=== PATIENT | female | born 1940 | race Caucasian/White ===

== ENCOUNTER 2017-07-26 14:43 | Emergency (ER) | payer OTHER ==
[2017-07-26 15:15] VITALS: BP 161/77; PULSE 69; RESP 16; TEMP 97.7; O2SAT 95
--- NOTE | 2017-07-26 15:47 | EDPHY ---
H & P Stated Complaint: RIGHT WRIST PAIN. DX-FX AT URGENT CARE HPI/ROS: HPI CHIEF COMPLAINT: Right wrist pain. HISTORY OF PRESENT ILLNESS: Patient very pleasant 76-year-old female, significant past medical history for hypertension and thyroid disease, presents emergency room right wrist pain. Patient fell on outstretched right hand yesterday after she slipped on some ice. She thought it was sprain. She had x- rays done at imaging center today and was diagnosed with a fracture. She is not sure exactly where the fractures. She presents emergency room with right wrist pain swelling and a x-ray disc. She denies any other areas of injury. Past Medical History: Hypertension, thyroid disease Past Surgical History: No recent surgical history. Social History: Lives locally, denies drugs alcohol tobacco. Family History: Noncontributory. ROS REVIEW OF SYSTEMS: A comprehensive 10 point review of systems is otherwise negative aside from elements mentioned in the history of present illness. Exam Constitutional triage nursing summary reviewed, vital signs reviewed, awake/ alert. Eyes normal conjunctivae and sclera, EOMI, PERRLA. HENT normal inspection, atraumatic, moist mucus membranes, no epistaxis, neck supple/ no meningismus, no raccoon eyes. Respiratory clear to auscultation bilaterally, normal breath sounds, no respiratory distress, no wheezing. Cardiovascular rate normal, regular rhythm, no murmur, no edema, distal pulses normal. Gastrointestinal soft, non-tender, no rebound, no guarding, normal bowel sounds, no distension, no pulsatile mass. Genitourinary no CVA tenderness. Musculoskeletal right upper extremity: Tender palpation over the distal right wrist, distal radius, is noted to be swollen, ecchymosis present, she is neurovascularly intact, compartments are soft, no midline vertebral tenderness, full range of motion, no calf swelling, no tenderness of extremities, no meningismus, good pulses, neurovascularly intact. Skin pink, warm, & dry, no rash, skin atraumatic. Neurologic awake, alert and oriented x 3, AAOx3, moves all 4 extremities equally, motor intact, sensory intact, CN II-XII intact, normal cerebellar, normal vision, normal speech. Psychiatric normal mood/affect. Heme/Lymph/Immune no lymphadenopathy. Differential Diagnosis: Includes but is not limited to in a particular order food injury, distal radius head fracture, distal ulnar fracture, wrist fracture , sprain, soft tissue swelling Medical Decision Making: Plan for this patient will load the disc to visualize the fracture, patient need to be splinted and close follow up with Orthopedics. Re-evaluation: Patient's outside x-ray reviewed by myself that shows a distal radius fracture. Patient be splinted in a sugar-tong splint, additionally will need orthopedic follow-up. Recommend ice, elevation, anti-inflammatory pain medicine for acute pain control. Source: Patient - Personal History Current Tetanus/Diphtheria Vaccine: Yes Current Tetanus Diphtheria and Acellular Pertussis (TDAP): Yes Tetanus Vaccine Date: < 10 YRS - Medical/Surgical History Hx Asthma: No Hx Chronic Respiratory Disease: No Hx Diabetes: No Hx Cardiac Disease: No Hx Renal Disease: No Hx Cirrhosis: No Hx Alcoholism: No Hx HIV/AIDS: No Hx Splenectomy or Spleen Trauma: No Other PMH: HYPOTHYROIDISM - Social History Smoking Status: Never smoked Constitutional: Initial Vital Signs Temperature (C) 36.5 C 07/26/17 15:11 Heart Rate 69 07/26/17 15:11 Respiratory Rate 16 07/26/17 15:11 Blood Pressure 161/77 H 07/26/17 15:11 O2 Sat (%) 95 07/26/17 15:11 O2 Delivery Mode Room Air Allergies/Adverse Reactions: Sulfa (Sulfonamide Antibiotics) Allergy (Severe, Verified 12/01/10 16:14) JOINT ACHES/RED BUMPS ENVIRNONMENTAL Allergy (Mild, Uncoded 06/18/13 11:46) RUNNY NOSE FRAGRANCES Allergy (Mild, Uncoded 06/18/13 11:46) TINGLING COUGH Home Medications: Medication Instructions Recorded Ascorbic Acid [Vitamin C] 500 mg PO BID 06/14/13 Aspirin [Aspirin 81mg (OTC)] 81 mg PO DAILY 06/14/13 Benzocaine/Resorcin/Aloe/E,A,D 28 gm TP .TWICE A WEEK 06/14/13 [Vagicaine Cream] Calcium Carb/Vit D3/Minerals 1 each PO BID 06/14/13 [Calcium 1,200 mg Tablet Chew] Carvedilol [Coreg] 12.5 mg PO BID 06/14/13 Cholecalciferol Vit D3 [Vitamin D3 1,000 units PO DAILY 06/14/13 1000 units (OTC)] Fish Oil/Dha/Epa [Fish Oil 1,200 1 each PO BID 06/14/13 mg Fish Oil] Glucosamine HCl/MSM [Sm 1 each PO BID 06/14/13 Glucosamine & MSM Tablet] Levothyroxine [Synthroid 112 mcg 112 mcg PO DAILY06 06/14/13 (RX)] Montelukast Sodium [Singulair 10 10 mg PO DAILY@1800 06/14/13 mg (RX)] Multivitamins [Tab-A-Will] 1 each PO DAILY 06/14/13 Ubidecarenone [Coq-10] 200 mg PO DAILY 06/14/13 Vit A/Vit C/Vit E/Zinc/Copper 1 each PO BID 06/14/13 [Preservision Areds Softgel] Vitamin E [Vitamin E 400 units 400 unit PO DAILY@19 06/14/13 (OTC)] metroNIDAZOLE 0.75 % [Metrogel 45 jonathan TP BID PRN 06/14/13 0.75% Topical Gel (RX)] Departure - Departure Disposition: Home, Routine, Self-Care Clinical Impression: Wrist fracture, right Qualifiers: Encounter type: initial encounter Fracture type: closed Qualified Code(s): S62.101A - Fracture of unspecified carpal bone, right wrist, initial encounter for closed fracture Condition: Good Instructions: Wrist Fracture in Adults (ED) Additional Instructions: 1. Please follow up with Orthopedics next week. 2. Call them for follow-up appointment. 3. Stay in her splint for comfort and pain control. 4. Take Motrin or Tylenol for pain control. Referrals: Kaiden Arguello MD [Primary Care Provider] - As per Instructions De Pfeiffer MD [Medical Doctor] - As per Instructions
== END 2017-07-26 16:58 | disposition home or self-care (01) ==
DX: S62.101A Fracture of unspecified carpal bone, right wrist, initial encounter for closed fracture (principal); I10 Essential (primary) hypertension; Z79.82 Long term (current) use of aspirin; W00.0XXA Fall on same level due to ice and snow, initial encounter; Y99.8 Other external cause status; Y93.89 Activity, other specified
CPT/HCPCS: 99282; A4565

== ENCOUNTER → 2017-08-22 | Outpatient (CLI) | payer OTHER | LOC: FIMAGING 11:34 | PROVIDERS: ATTEND Internal Medicine | DX: Z12.31 Encounter for screening mammogram for malignant neoplasm of breast (principal) ==

== ENCOUNTER → 2017-08-30 | Outpatient (CLI) | payer OTHER | LOC: FIMAGING 09:56 | PROVIDERS: ATTEND Internal Medicine | DX: R92.8 Other abnormal and inconclusive findings on diagnostic imaging of breast (principal) ==

== ENCOUNTER → 2017-09-09 | Outpatient (CLI) | payer OTHER ==
[~2017-09-09] MED LIST: BUPIVACAINE 0.5% 30 ML SDV ONE; LIDOCAINE 1% 300 MG/30 ML SDV ONE
== END ==
LOC: FIMAGING 07:26
PROVIDERS: ATTEND Internal Medicine
PROC: 0HBU3ZX Excision of Left Breast, Percutaneous Approach, Diagnostic (ICD-10-PCS; principal; 2017-09-09)
DX: C50.912 Malignant neoplasm of unspecified site of left female breast (principal)

== ENCOUNTER 2017-09-20 06:08 | Day surgery (SDC) | payer OTHER ==
[2017-09-20] MEDS ORDERED: LR 1,000 ML IV ONE (06:35)
--- NOTE | 2017-09-20 07:27 | PDHPUP ---
History & Physical Update H&P update statement: This history and physical update is based on an assessment of the patient which was completed after admission or registration (within 24 hours), but prior to the surgery/procedure.
[2017-09-20] MEDS ORDERED: LIDOCAINE 1% 300 MG/30 ML SDV ONE (07:35)
[2017-09-20] MEDS ORDERED: ceFAZolin 2 GM/SWFI 2 GM/20 ML SYR IVP ONE (07:49)
[2017-09-20] MEDS ORDERED: MIDAZOLAM 2 MG/2 ML VIAL IVP ONE (10:01)
[2017-09-20] MEDS ORDERED: MIDAZOLAM 2 MG/2 ML VIAL ONE (10:04)
--- NOTE | 2017-09-20 10:05 | PDANEPAE ---
ANE History of Present Illness Left breast lumpectomy with sentinel node ANE Past Medical History - Cardiovascular History Hx Hypertension: Yes Hx Arrhythmias: No Hx Chest Pain: No Hx Coronary Artery / Peripheral Vascular Disease: No Hx CHF / Valvular Disease: No Hx Palpitations: No - Pulmonary History Hx COPD: No Hx Asthma/Reactive Airway Disease: No Hx Recent Upper Respiratory Infection: Yes Hx Oxygen in Use at Home: Yes O2 in Use at Home (L/minute): O2 2L NOC Hx Sleep Apnea: No Sleep Apnea Screening Result - Last Documented: Negative Pulmonary History Comment: O2 FOR HIGH ALTITUDE - Neurologic History Hx Cerebrovascular Accident: No Hx Seizures: No Hx Dementia: No - Endocrine History Hx Diabetes: Yes Hypothyroid: No Hyperthyroid: No Obesity: no Endocrine History Comment: THYROIDECTOMY - Renal History Hx Renal Disorders: No - Liver History Hx Hepatic Disorders: No - Neurological & Psychiatric Hx Hx Neurological and Psychiatric Disorders: No - Cancer History Hx Cancer: Yes Cancer History Comment: BREAST CA. SQUAMOUS CELL X2 - Congenital Disorder History Hx Congenital Disorders: No - GI History GERD: mild Hx Gastrointestinal Disorders: Yes Gastrointestinal History Comment: ACID REFLUX - Other Health History Other Health History: NEG - Chronic Pain History Chronic Pain: No - Surgical History Prior Surgeries: WRIST FX PINNING R - HAS BRACE. THYROIDECTOMY 2010. BREAST BX SEP 2016. VAG SLING 2004. R RONNY 2012 ANE Review of Systems Review of Systems: - Exercise capacity METS (RN): 4 METS ANE Patient History - Allergies Allergies/Adverse Reactions: Sulfa (Sulfonamide Antibiotics) Allergy (Severe, Verified 12/01/10 16:14) JOINT ACHES/RED BUMPS adhesive tape Allergy (Verified 09/18/17 10:37) POSSIBLE REACTION W/ITCHING & REDNESS ENVIRNONMENTAL Allergy (Mild, Uncoded 06/18/13 11:46) RUNNY NOSE FRAGRANCES Allergy (Mild, Uncoded 06/18/13 11:46) TINGLING COUGH - Home Medications Home medications: home medication list seen and reviewed Home Medications: Aspirin [Aspirin 81mg (OTC)] 81 mg PO DAILY 06/14/13 [Last Taken 06/16/13] Benzocaine/Resorcin/Aloe/E,A,D [Vagicaine Cream] 28 gm TP .TWICE A WEEK [Last Taken 06/14/13] Calcium Carb/Vit D3/Minerals [Calcium 1,200 mg Tablet Chew] 1 each PO BID [Last Taken 06/16/13] Fish Oil/Dha/Epa [Fish Oil 1,200 mg Fish Oil] 1 each PO BID 06/14/13 [Last Taken 06/16/13] Glucosamine HCl/MSM [Sm Glucosamine & MSM Tablet] 1 each PO BID 06/14/13 [Last Taken 06/16/13] Levothyroxine [Synthroid 112 mcg (RX)] 112 mcg PO DAILY06 06/14/13 [Last Taken 06/30/13 08:00] Montelukast Sodium [Singulair 10 mg (RX)] 10 mg PO DAILY@1800 06/14/13 [Last Taken 06/29/13 09:30] Vit A/Vit C/Vit E/Zinc/Copper [Preservision Areds Softgel] 1 each PO BID [Last Taken 06/18/13] metroNIDAZOLE 0.75 % [Metrogel 0.75% Topical Gel (RX)] 45 jonathan TP BID PRN [Last Taken 06/28/13] Herbals/Supplements -Info Only 09/18/17 [Last Taken Unknown] Losartan Potassium 09/18/17 [Last Taken Unknown] Omeprazole 09/18/17 [Last Taken Unknown] - NPO status NPO Since - Liquids (Date): 09/20/17 NPO Since - Solids (Date): 09/19/17 - Anes Hx Anes Hx: no prior problems - Smoking Hx Smoking Status: Never smoked - Alcohol Use Alcohol Use: Occasionally - Family Anes Hx Family Anes Hx: none Family Hx Anesthesia Complications: NEG ANE Labs/Vital Signs - Vital Signs Blood Pressure: 162/90 Heart Rate: 64 Respiratory Rate: 16 O2 Sat (%): 100 Height: 167.64 cm Weight: 65.771 kg ANE Physical Exam - Airway Mallampati Score: Class 1 Mouth exam: normal dental/mouth exam - Pulmonary Pulmonary: no respiratory distress - Cardiovascular Cardiovascular: regular rate and rhythym - ASA Status ASA Status: II ANE Anesthesia Plan Anesthesia Plan: GA with mask
[2017-09-20] MEDS ORDERED: fentaNYL 100 MCG/2 ML INJ ONE ×2 (10:16→10:17)
[2017-09-20] MEDS ORDERED: PROPOFOL/EMULSION 500 MG/50 ML BOTTLE IV ONE (10:17)
[2017-09-20] MEDS ORDERED: PROPOFOL 200 MG/20 ML VIAL ONE (10:17)
[2017-09-20] MEDS ORDERED: THROMBIN (BOVINE) 5,000 UNIT VIAL TP ONE (10:35)
[2017-09-20] MEDS ORDERED: DEXAMETHASONE 4 MG/ML VIAL ONE (10:38)
[2017-09-20] MEDS ORDERED: LIDOCAINE 2% 5 ML SDV ONE (10:38)
[2017-09-20] MEDS ORDERED: ONDANSETRON 4 MG/2 ML VIAL ONE (10:38)
[2017-09-20] MEDS ORDERED: BUPIVACAINE 0.5% 30 ML SDV IF ONE (11:20)
[2017-09-20] MEDS ORDERED: OXYCODONE/APAP 5/325 TAB PO PRN (11:32)
[2017-09-20] MEDS ORDERED: HYDROCODONE/APAP 5/325 TAB PO PRN (11:32)
[2017-09-20] MEDS ORDERED: ONDANSETRON 4 MG/2 ML VIAL IVP PRN (11:32)
[2017-09-20] MEDS ORDERED: NALOXONE HCL 0.4 MG/ML INJ IVP PRN (11:32)
--- NOTE | 2017-09-20 11:42 | POSTOPPROG ---
Post Op Note Date of Operation: 09/20/17 Surgeon: Mehdi Saravia Cane Splicer: Nica Anesthesiologist: John Anesthesia: GET(General Endotracheal) Pre-op Diagnosis: Left breast CA Post-op Diagnosis: same Indication: same Procedure: Left breast lumpectomy and sentinel node biopsy Inf/Abcess present in the surg proc area at time of surgery?: No EBL: Minimal
[2017-09-20 12:01] VITALS: PULSE 69
[2017-09-20 12:42] VITALS: RESP 17
[2017-09-20 13:25] VITALS: BP 123/60; O2SAT 96
[2017-09-20 13:26] VITALS: TEMP 97.3
--- NOTE | 2017-09-20 13:54 | POSTANESTH ---
Post Anesthetic Evaluation Cardiovascular Status: Normal, Stable Respiratory Status: Normal, Stable Level of Consciousness/Mental Status: Can Participate in Eval Pain Control: Adequate, Prn Tx Ordered Nausea/Vomiting Control: Adequate, Prn Tx Ordered Complications Possibly Related to Anesthesia: None Noted
--- NOTE | 2017-09-21 13:12 | GOP ---
[f rep st] OPERATIVE REPORT DATE OF OPERATION: SURGEON: Mehdi Saravia MD ELECTRICIAN MACHINE SHOP: Bell Yousif NP PREOPERATIVE DIAGNOSIS: Left breast cancer. POSTOPERATIVE DIAGNOSIS: Left breast cancer. PROCEDURE PERFORMED: Left needle localization lumpectomy and left sentinel node biopsy. FINDINGS: The patient was found have a negative sentinel node and the specimen target was contained within the specimen. DESCRIPTION OF PROCEDURE: The patient was taken to the operating room where she received satisfactor y general endotracheal anesthesia by Dr. Lopez. She was placed in supine position with the left arm outstretched on an arm board, prepped and draped in usual sterile fashion. Using the gamma probe, t he area of the sentinel node was identified and a short incision was made in the base of the axilla. Dissection was carried down through the subcutaneous tissue and through the axillary fascia. Lymph nodes were elevated up. A large sentinel node was dissected free using hemoclips and electrocautery and removed. It had significant positivity on the gamma probe and there was no significant remaining activity in the axilla. That node was sent to Pathology and eventually was returned as benign. The axilla was infiltrated with 0.5% Marcaine. Some topical thrombin was placed in the cavity. Hemosta sis was assured and the wound was closed with 3-0 Vicryl for the fascia and subcutaneous tissue and a 4-0 Monocryl subcuticular stitch for the skin. Attention was turned to the breast needle localization site. A curvilinear incision was made at the needle insertion site, and dissection extended down through subcutaneous tissue. A generous full-thi ckness biopsy was taken around the needle site. The specimen was removed and sent to x-ray and confi rmed it contained the target. Hemostasis was carefully obtained. The specimen was sent to Pathology and the margins were thought to be adequate. The wound was irrigated and infiltrated with 0.5% Marck kristen and then closed in layers in a mammographic mammoplastic technique with interrupted 3-0 Vicryl s utures. The wound was further infiltrated with 0.5% Marcaine. Some topical thrombin was placed in t he cavity. The skin was closed with 4-0 Monocryl subcuticular stitch. She tolerated the procedure w ell. Taken to the recovery room in good condition. No complications. Blood loss negligible. /[id number]/MODL
== END 2017-09-20 13:25 | disposition home or self-care (01) ==
LOC: FSGY 06:08
PROVIDERS: ATTEND Surgery
PROC: BH01ZZZ Plain Radiography of Left Breast (ICD-10-PCS; 2017-09-20)
PROC: 07B50ZX Excision of Right Axillary Lymphatic, Open Approach, Diagnostic (ICD-10-PCS; principal; 2017-09-20 09:45)
DX: C50.912 Malignant neoplasm of unspecified site of left female breast (principal); I10 Essential (primary) hypertension; J45.909 Unspecified asthma, uncomplicated; Z96.641 Presence of right artificial hip joint
CPT/HCPCS: 19285; 19301; 38500; 76098; 78195; A9520; J0690; J1100; J2250; J2405; J2704; J3010